=== PATIENT | female | born 1940 | race Caucasian/White ===

== ENCOUNTER 2019-04-10 20:11 | Emergency (ER) | payer OTHER ==
[~2019-04-10] VITALS: Ht 170.2 cm; Wt 65.0 kg
[2019-04-10 21:51] LABS: ANION GAP 17 (6-22 (CALC)); BUN 17 mg/dL (8-23); BUN/CREATININE RATIO 22 (12-20 (CALC)); CARBON DIOXIDE 18 mmol/l (22-30); CHLORIDE 108 mmol/l (95-108); CREATININE 0.8 mg/dL (0.5-1.0); GFR > 60 ML/MIN (>=60 (CALC)); GFR FOR AFR.AMER. > 60 ML/MIN (>=60 (CALC)); POTASSIUM 3.9 mmol/l (3.5-5.1); SODIUM 139 mmol/l (137-146)
[2019-04-10] MEDS ORDERED: PERCOCET 5/325M1 TAB PO (23:46)
[2019-04-11 00:01] VITALS: BP 151/69
== END 2019-04-11 00:22 | disposition home or self-care (01) | DRG 605 ==
LOC: ED 20:11
PROVIDERS: Emergency Medicine
DX: S81.811A Laceration without foreign body, right lower leg, initial encounter (principal); S80.812A Abrasion, left lower leg, initial encounter; S50.811A Abrasion of right forearm, initial encounter; T14.8XXA Other injury of unspecified body region, initial encounter; V49.50XA Passenger injured in collision with unspecified motor vehicles in traffic accident, initial encounter

== ENCOUNTER 2019-04-20 11:46 | Emergency (ER) | payer OTHER ==
[~2019-04-20] VITALS: Ht 170.2 cm; Wt 65.5 kg
[~2019-04-20 11:46] MED LIST: PERCOCET 5/325M1 TAB PO
[2019-04-20] MEDS ORDERED: KEFLEX500 M1 PO (12:18)
[2019-04-20 12:42] VITALS: BP 150/82
== END 2019-04-20 12:43 | disposition home or self-care (01) | DRG 605 ==
LOC: ED 11:46
DX: S80.811A Abrasion, right lower leg, initial encounter (principal); L08.9 Local infection of the skin and subcutaneous tissue, unspecified